=== PATIENT | male | born 1990 | race Caucasian/White ===

== ENCOUNTER 2019-09-23 01:30 | Emergency (ER) | payer BC, SELFPAY ==
[2019-09-23 01:31] VITALS: BP 161/105; PULSE 88; RESP 14; TEMP 36.6; O2SAT 100; BMI 34.6
--- NOTE | 2019-09-23 01:40 | ED.VIS.GEN ---
History of Present Illness Chief Complaint: Upper Extremity Injury Detail of Chief Complaint: Lateral right elbow pain, no history of trauma Informant: Patient Onset: Month(s) Context: Sudden Onset Timing: Continuous, Waxes and wanes Quality: Lateral epicondyle Location: Right lateral epicondyle Current Severity: Mild Maximum Severity: Severe Worsened by: Use especially flexion with supination pronation Relieved by: Rest Associated Symptoms: No paresthesia or anesthesia Narrative: Patient is a 29-year-old [id number] male presents with right wrist pain for the past 3 months. He localizes pain over the lateral epicondyle. He denies paresthesia, anesthesia motors. There is no history of trauma. He has no other symptoms. Prior similar symptoms: No Recent Illness/Hospitalization: No - Past Medical History (1) No significant past medical history Status: Acute Past Medical History - Allergies and Home Meds Allergies/Adverse Reactions: Allergies No Known Allergies Allergy (Verified 09/23/19 01:31) Primary Care Physician: Zoe Nogueira PA [Primary Care Provider] - Prior records reviewed: No Past Medical History: None Surgical History: no surgical history Lives: Spouse/ Significant Other Smoking Status: Never smoker Alcohol: None Drugs: None Review of Systems General: Denies: Chills, Fever, Malaise Musculoskeletal: Reports: Extremity Pain. Denies: Myalgias, Arthralgias, Neck pain, Back pain, Swelling Neurological: Denies: Weakness, Parasthesia, Numbness Hematologic: Denies: Easy bruising, Easy bleeding Allergy: Denies: Uticaria Physical Exam Vital Signs/Narrative: Vital Signs Temp Pulse Resp BP Pulse Ox 09/23/19 01:31 97.9 F 88 14 161/105 H 100 Inital Vital Signs reviewed: Yes General: Well nourished, Well developed, Obese, No Acute Distress Head: Normocephalic, Atraumatic Eyes: Perrl, EOMI. Negative for: Pale conjunctiva, Scleral icterus ENT: Moist mucous membranes, No rhinorrhea Neck: Supple, Nontender, No lymphadenopathy, No JVD Cardiovascular: Regular rate, Regular rhythm Respiratory: No distress Extremities: No edema, Tenderness - Pain palpation over the lateral epicondyle. Having patient flex and pronate against resistance causes him discomfort to the lateral epicondyle. Axillary, median, radial and ulnar function intact. Radial pulses palpable and symmetric.. Negative for: Nontender Skin: Normal color, No rash, No Trauma. Negative for: Cyanosis, Diaphoresis, Jaundice Neurological: Alert, Oriented x3, Cranial nerves II-XII grossly intact, Normal Strength, Normal Sensation Psychological: Normal affect Diagnostic/Tx/Re-eval - Medical Decision Making There is no history of trauma and this has been a problem for 3 months x-rays were not obtained. He has no contraindication to NSAIDs. He was instructed to get a tennis elbow band and follow-up with his doctor if no improvement. He may require injection with steroids. ED Disposition - Plan for ED Patient: Disposition: Home or Assisted Living Diagnosis: Lateral epicondylitis of right elbow Instructions: Tennis Elbow Referrals: Zoe Nogueira PA [Primary Care Provider] - 1 Week if not improving Additional Instructions: Recommend purchasing band for tennis elbow and wear while at work. Take either 4 ibuprofen tablets every 8 hours or 2 Aleve tablets every 12 hours for the next 5 to 7 days.
[2019-09-23] MEDS: Ibuprofen 400 MG Tablet 800 MG PO (01:56)
[2019-09-23 02:01] VITALS: RESP 16
== END 2019-09-23 02:01 | disposition home or self-care (01) ==
LOC: ED 01:57
PROVIDERS: Emergency Provider Emergency Medicine; PCP Physician Assistant Medical
DX: M77.11 Lateral epicondylitis, right elbow (principal); E66.9 Obesity, unspecified
CPT/HCPCS: 99283

== ENCOUNTER 2019-09-30 03:33 | Emergency (ER) | payer OTHER, BC, SELFPAY ==
[2019-09-30 03:34] VITALS: BP 173/91; PULSE 91; RESP 18; TEMP 36.3; O2SAT 96; BMI 51.8
--- NOTE | 2019-09-30 03:44 | ED.VIS.GEN ---
History of Present Illness Chief Complaint: Upper Extremity Injury Informant: Patient Narrative: Stated for the last few weeks he has been having pain in his left shoulder. 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 He also has a tendinitis in his right elbow. He has had this flare from time to time over the last few months. 2 months ago he was on a Medrol Dosepak and the discomfort went away while he was on it but then came back after he is been off. Patient denies any traumatic injury to his shoulder. Is worsened by movement and lifting. Relieved with rest. Past Medical History - Allergies and Home Meds Allergies/Adverse Reactions: Allergies No Known Allergies Allergy (Verified 09/23/19 01:31) Primary Care Physician: Zoe Nogueira PA [Primary Care Provider] - Prior records reviewed: Yes Past Medical History: None Surgical History: no surgical history Smoking Status: Former smoker Alcohol: None Drugs: None Review of Systems General: Denies: Chills, Fever, Sweats Eyes: Denies: Visual changes - bilaterally, Diplopia ENT: Denies: Rhinorrhea, Sore throat Cardiovascular: Denies: Chest pain, Palpitations Respiratory: Denies: Dyspnea, Cough, Dyspnea on exertion Gastrointestinal: Denies: Abdominal pain, Nausea, Vomiting, Diarrhea, Melena, Hematochezia Genitourinary: Denies: Dysuria, Hematuria, Frequency Musculoskeletal: Reports: Extremity Pain. Denies: Back pain Skin: Denies: Rash, Wounds Neurological: Denies: Headache, Weakness, Numbness Physical Exam Vital Signs/Narrative: Vital Signs Temp Pulse Resp BP Pulse Ox 09/30/19 03:34 97.4 F L 91 18 173/91 H 96 General: Well nourished, Well developed, No Acute Distress Head: Normocephalic, Atraumatic Eyes: Perrl, EOMI ENT: Moist mucous membranes, No rhinorrhea Neck: Supple, Nontender Cardiovascular: Regular rate, Regular rhythm, No murmurs Respiratory: No distress, CTA bilaterally, Chest nontender Abdomen: Soft, Nontender, Nondistended, Normal bowel sounds Back: Nontender, Normal Inspection Extremities: No edema, Tenderness - Georgse noticed in the anterior lateral shoulder with mild decreased range of motion secondary pain pinpoint. Negative for: Nontender Skin: Normal color, No rash Neurological: Alert, Oriented x3, Cranial nerves II-XII grossly intact, Normal Strength, Normal Sensation Psychological: Normal affect, Normal Mood Diagnostic/Tx/Re-eval - Medical Decision Making Patient consented to injection. Given a 80 mg injection of Kenalog in his left anterior shoulder intramuscular pinpoint where he is having the tenderness. Patient will follow-up as an outpatient continue anti-inflammatories. This time I feel he has rotator cuff tendinitis ED Disposition - Plan for ED Patient: Disposition: Home or Assisted Living Diagnosis: Tendinitis Instructions: Understanding Rotator Cuff Injuries Prescriptions: Meloxicam [Mobic] 15 mg PO DAILY #30 tab Prescription Printed Referrals: [facility] [GROUP OF PHYSICIANS] -
[2019-09-30] MEDS: Triamcinolone Acetonide 40 MG/ML Vial 80 MG IM (03:55)
--- NOTE | 2019-09-30 04:12 | ED.RN ---
SHOT TIME WAS OBSERVED FOR 15MIN, NO REACTION NOTED BY THIS NURSE. PT D/C.
== END 2019-09-30 04:13 | disposition home or self-care (01) ==
PROVIDERS: Emergency Provider Emergency Medicine; PCP Physician Assistant Medical
DX: M77.9 Enthesopathy, unspecified (principal); Z87.891 Personal history of nicotine dependence
CPT/HCPCS: 96372; 99282

== ENCOUNTER 2019-11-12 07:30 | Outpatient (RCR) | payer OTHER, BC, SELFPAY ==
[2019-10-01 07:55] VITALS: BMI 51.8
[2019-10-19 11:18] VITALS: BMI 51.8
--- NOTE | 2019-10-25 08:13 | HP.PTEVAL_ITS ---
Patient's Visit Information TRE BEJARANO is a 29 year old M referred to Physical Therapy by RODOLFO Rose with a diagnosis of L shoulder tendonitis. Date of Evaluation: 10/25/19 Physical Therapist: Macho Toussaint, SHAAN, OCS, CSCS - Visit Plan Frequency: 3x /Week Duration: 4 Weeks Plan: 3x/week for 4 weeks for... Activitiy modification instruction. Mobs g-h L and pec stretches. US nonthermal to L supraspinatus insertion. postural and RC strength L progressing to HEP. ES/ice if needed. - Subjective Subjective: L shoulder, something happened at work, not sure what, but got sharp shooting pains. That was about a month ago. Did nothing new. He went to reach for a part and it got sharp pain. Reaching out and up is painful. Has improved as he has been on light duty. Sleep is interrupted if he moves or rolls the wrong way but sleeps well for the most part. 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 Basic ADLs at home is not a problem. No problem with hobbies. No exercises given for shoulder. When he was at the hospital he got a ashlie log shot which helped for two days. No diagnosics. - Pain L shoulder Pain Intensity (Out of 10): 0 Pain Intensity Range: 0, 10 Comment: reaching worse work, 2/10 at home - Objective Walks and transfers normal. Posture is forward head and forward shoulder blades. Full aROM B shoulders with some slight pain today end range flexiona nd abduction. Rotations are full. Elbow and wrist are full. Has cupping bruises around lat epicondyles at elbow due to treatment. Tender to palpation supra tendon moderately. reflexes 2/3 bi and tri. Sensation WNL to gross light touch in UE. Strength 4/5 throughout UE shoulder and elbows, pain with shoulder external rotation, flexion, empty can. Slight with abduction resisted. - ext rotation lag test. - HK. - neer. - sulcus. - labral testing - Goals Goal 1:: Full AROM L shoulder without paina nd full strength testing rotations adn felxion without pain or weakness. Goal Time Frame: 4-6 Weeks Goal 2:: Pt feel 90% back to normal with activity and sleep Goal Time Frame: 4-6 Weeks Goal 3:: Ready to return to full duty without increased pain Goal Time Frame: 4-6 Weeks Goal 4:: Quick DASH 0% disability Goal Time Frame: 4-6 Weeks - Rehabilitation Potential Physical Therapy Diagnosis: L shoulder tendonitis supraspinatus. Rehabilitation Potential: Fair - Anticipated Interventions Patient/Client Instruction: Educate patient on: Condition, Plan of Care For the Purpose of:: To decrease pain, To increase tolerance to activity/condition/position, To improve ability of physical actions for home/community/work/leisure Therapeutic Exercise to Include: Strength training, Postural training, Fle xibilty training, Passive ROM, Active ROM For the Purpose of:: To decrease pain, To increase ROM, To improve muscle performance and motor function, To increase tolerance to ac tivity/condition/position Manual Therapy Techniques to Include: Mobilization, Passive ROM, Soft tissue mobilization For the Purpose of:: To decrease pain, To increase ROM TENS: Yes Cryotherapy (ice pack, ice massage): Yes Ultrasound (thermal/non thermal): Yes For the Purpose of:: To decrease pain, To decrease swelling/inflammation Thank you for the opportunity to evaluate your patient. For Medicare and Medicare HMO plans, please review the plan of care and approve it. It will need to be FAXED BACK to us at [phone] for Medicare purposes. For Medicare only, by signing this I certify the plan of care. Please let me know if there are questions or concerns regarding this plan of care. Physician Signature: Date:
--- NOTE | 2020-01-11 16:19 | HP.PT.NRP ---
TRE BEJARANO was seen in my office for initial evaluation on 10/25/19. The following Plan of Care was established for this patient: Initial Frequency: 3x /Week Initial Duration: 4 Weeks Patient/Client Instruction: Educate patient on: Condition, Plan of Care For the Purpose of:: To decrease pain, To increase tolerance to activity/condition/position, To improve ability of physical actions for home/community/work/leisure Therapeutic Exercise to Include: Strength training, Postural training, Flexibilty training, Passive ROM, Active ROM For the Purpose of:: To decrease pain, To increase ROM, To improve muscle performance and motor function, To increase tolerance to activity/condition/position Manual Therapy Techniques to Include: Mobilization, Passive ROM, Soft tissue mobilization For the Purpose of:: To decrease pain, To increase ROM TENS: Yes Cryotherapy (ice pack, ice massage): Yes Ultrasound (thermal/non thermal): Yes For the Purpose of:: To decrease pain, To decrease swelling/inflammation This patient was last seen in our office 11/12/19. Pertinent comments regarding their Physical therapy will appear below: Pt seen 8 visits of POC. HE cancelled or no showed his last 4. 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 At this point, I will discontinue due to nonattendance as it has been nearly two months. At this point I will be discontinuing this patient from physical therapy. I would be happy to see this patient again in the future if found appropriate by the physician. Thank you! Macho Toussaint, DPT, OCS, CSCS
== END 2019-11-12 19:00 | disposition home or self-care (01) ==
LOC: PT 07:30
PROVIDERS: PCP Physician Assistant Medical; Referring Provider Physician Assistant Surgical; Visit Provider Physician Assistant Surgical
DX: M75.82 Other shoulder lesions, left shoulder (principal)
CPT/HCPCS: 97035; 97110; 97140; 97161